=== PATIENT | male | born 1975 | race African-American/Black ===

== ENCOUNTER 2022-01-30 12:09 | Emergency (ER) | payer SELFPAY ==
[~2022-01-30] VITALS: Ht 188 cm; Wt 100.0 kg
[2022-01-30 12:15] VITALS: BP 128/88
[2022-01-30] MEDS ORDERED: IBUPROFEN 600MG TABLET PO ONE (12:30)
== END 2022-01-30 14:00 | disposition home or self-care (01) ==
LOC: ER 12:09
DX: B34.9 Viral infection, unspecified (principal); Z20.822 Contact with and (suspected) exposure to COVID-19
CPT/HCPCS: 87426; 99283; C9803